=== PATIENT | male | born 1995 | race Caucasian/White ===

== ENCOUNTER 2018-12-09 17:25 | Emergency (ER) | payer BC, OTHER ==
[~2018-12-09] VITALS: Ht 172.7 cm; Wt 67.3 kg
[2018-12-09 18:00] LABS: HEMATOCRIT 45.4 % (42.0-52.0); HEMOGLOBIN 15.7 g/dl (13.5-17.5); MEAN CORPUSCULAR HGB CONC 34.6 g/dl (32.0-36.5); MEAN CORPUSCULAR VOLUME 86.8 fl (80.0-96.0); PLATELET COUNT, AUTOMATED 214 10^3/uL (150-450); RED BLOOD COUNT 5.23 10^6/uL (4.30-6.10); WHITE BLOOD COUNT 7.3 10^3/uL (4.0-10.0)
[2018-12-09 18:44] LABS: ACETAMINOPHEN LEVEL < 2.0 UG/ML (10.0-30.0); ALBUMIN 4.8 GM/DL (3.2-5.2); ALT/SGPT 19 U/L (12-78); BILIRUBIN,DIRECT 0.2 MG/DL (0.0-0.2); BILIRUBIN,TOTAL 0.6 MG/DL (0.2-1.0); BLOOD UREA NITROGEN 10 MG/DL (7-18); CALCIUM LEVEL 9.2 MG/DL (8.5-10.1); CARBON DIOXIDE LEVEL 28 MEQ/L (21-32); CHLORIDE LEVEL 106 MEQ/L (98-107); CREATININE FOR GFR 1.05 MG/DL (0.70-1.30); ETHYL ALCOHOL (ETHANOL) < 0.003 % (0.000-0.010); GLOMERULAR FILTRATION RATE > 60.0 (>60); GLUCOSE, FASTING 78 MG/DL (70-100); POTASSIUM SERUM 4.1 MEQ/L (3.5-5.1); SALICYLATE LEVEL < 1.7 MG/DL (5.0-30.0); SODIUM LEVEL 141 MEQ/L (136-145); THYROID STIMULATING HORMONE 0.613 uIU/ML (0.358-3.740); TOTAL PROTEIN 7.8 GM/DL (6.4-8.2)
[2018-12-09] MEDS ORDERED: ALPRAZolam 0.5 MG TAB PO ONE (19:15)
[2018-12-09 19:51] LABS: AMPHETAMINES LEVEL URINE NEGATIVE (NEGATIVE); BARBITURATES URINE NEGATIVE (NEGATIVE); BENZODIAZEPINES URINE NEGATIVE (NEGATIVE); CANNABINOIDS URINE POSITIVE (NEGATIVE); COCAINE METABOLITE URINE NEGATIVE (NEGATIVE); METHADONE URINE NEGATIVE (NEGATIVE); OPIATES URINE NEGATIVE (NEGATIVE); PHENCYCLIDINE URINE NEGATIVE (NEGATIVE)
--- NOTE | 2018-12-09 21:04 | ECGEPIP ---
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
[2018-12-09 22:37] VITALS: BP 118/69
== END 2018-12-09 22:37 | disposition short-term general hospital (02) ==
LOC: EDSEX 17:25 → M ED 17:25
DX: F43.0 Acute stress reaction (principal); F32.9 Major depressive disorder, single episode, unspecified; I49.9 Cardiac arrhythmia, unspecified
CPT/HCPCS: 36415; 80048; 80076; 80307; 84443; 85027; 93005; 99284; G0480

== ENCOUNTER 2019-02-27 10:12 | Inpatient (IN) | payer BC, OTHER ==
[~2019-02-27] VITALS: Ht 175.3 cm; Wt 64.7 kg
[2019-02-27 10:54] LABS: HEMATOCRIT 44.1 % (42.0-52.0); HEMOGLOBIN 15.4 g/dl (13.5-17.5); MEAN CORPUSCULAR HEMOGLOBIN 30.6 pg (27.0-33.0); MEAN CORPUSCULAR HGB CONC 34.9 g/dl (32.0-36.5); MEAN CORPUSCULAR VOLUME 87.7 fl (80.0-96.0); PLATELET COUNT, AUTOMATED 194 10^3/uL (150-450); RED BLOOD COUNT 5.03 10^6/uL (4.30-6.10); WHITE BLOOD COUNT 8.9 10^3/uL (4.0-10.0)
[2019-02-27 11:22] LABS: AMPHETAMINES LEVEL URINE NEGATIVE (NEGATIVE); BARBITURATES URINE NEGATIVE (NEGATIVE); BENZODIAZEPINES URINE NEGATIVE (NEGATIVE); CANNABINOIDS URINE POSITIVE (NEGATIVE); COCAINE METABOLITE URINE NEGATIVE (NEGATIVE); METHADONE URINE NEGATIVE (NEGATIVE); OPIATES URINE NEGATIVE (NEGATIVE); PHENCYCLIDINE URINE NEGATIVE (NEGATIVE)
[2019-02-27 11:43] LABS: ACETAMINOPHEN LEVEL < 2.0 UG/ML (10.0-30.0); ALBUMIN 4.7 GM/DL (3.2-5.2); ALT/SGPT 22 U/L (12-78); BILIRUBIN,DIRECT 0.2 MG/DL (0.0-0.2); BILIRUBIN,TOTAL 0.6 MG/DL (0.2-1.0); BLOOD UREA NITROGEN 10 MG/DL (7-18); CALCIUM LEVEL 9.1 MG/DL (8.5-10.1); CARBON DIOXIDE LEVEL 27 MEQ/L (21-32); CHLORIDE LEVEL 103 MEQ/L (98-107); CREATININE FOR GFR 1.09 MG/DL (0.70-1.30); ETHYL ALCOHOL (ETHANOL) < 0.003 % (0.000-0.010); GLOMERULAR FILTRATION RATE > 60.0 (>60); GLUCOSE, FASTING 96 MG/DL (70-100); POTASSIUM SERUM 3.6 MEQ/L (3.5-5.1); SALICYLATE LEVEL < 1.7 MG/DL (5.0-30.0); SODIUM LEVEL 138 MEQ/L (136-145); TOTAL PROTEIN 7.5 GM/DL (6.4-8.2)
[2019-02-27] MEDS ORDERED: MOM 30ML SUSPENSION UDC PO PRN (13:15)
[2019-02-27] MEDS ORDERED: MAALOX 30 ML SUSP *UDC PO PRN (13:15)
[2019-02-27] MEDS ORDERED: LORazepam 1 MG TAB PO ONE (13:15)
[2019-02-27 14:00] VITALS: BP 119/71
--- NOTE | 2019-02-27 17:50 | HPEPDOC ---
[facility] Medical History & Physical Date of Admission February 27, 2019 History and Physical CHIEF COMPLAINT: [Hospitalist evaluation] HISTORY OF PRESENT ILLNESS: [23-year-old gentleman was in a few past medical history other than depression and schizophrenia who was admitted to the inpatient mental health unit for thoughts of paranoia. Patient recognized that he had paranoia and therefore came to the hospital for further evaluation and treatment. Patient denies of any complaints at this time. Resting comfortably in the inpatient mental health. Patient wants to get help.] PAST MEDICAL HISTORY: Schizophrenia, depression No medical history PAST SURGICAL HISTORY: None SOCIAL HISTORY: Social he smokes cigarettes, socially drinks alcohol occasionally but not abuse them Smokes marijuana but denies of any IV drug abuse FAMILY HISTORY: Far sees aware both parents are healthy ALLERGIES: Please see below. REVIEW OF SYSTEMS: 10 point review systems negative than those described in HPI HOME MEDICATIONS: Please see below. PHYSICAL EXAMINATION: VITAL SIGNS: Please see below GENERAL APPEARANCE: Resting comfortably HEENT: Normocephalic, PERRLA, Mucous moist, CARDIOVASCULAR: S1,S2, pulse present, regularly, regular LUNGS: Equal air entry b/l, no wheezes or crackle ABDOMEN: Soft, BS present, no tenderness, no guarding EXTREMITIES: B/L no edema, capillary refill present SKIN: Warm, No fever NEUROLOGICAL: Cranial nerves grossly intact PSYCHIATRIC: Normal mood and affect for current situation LABORATORY DATA: See below. Assessment and plan: [23-year-old gentleman was in a few past medical history other than depression and schizophrenia who was admitted to the inpatient mental health unit for thoughts of paranoia. Paranoia -Defer to further recommendation by psychiatric team Smoking cessation -Nicotine patch as needed No overt signs of any alcohol withdrawal -Continue to monitor We'll sign off, please reconsult as needed. Vital Signs Vital Signs Date Time Temp Pulse Resp B/P (MAP) Pulse Ox O2 Delivery O2 Flow Rate FiO2 02/27/19 14:04 98.6 82 17 119/71 (87) 98 Room Air 02/27/19 14:00 98.0 Laboratory Data Labs 24H Laboratory Tests 2 02/27/19 10:44: Nucleated Red Blood Cells % (auto) 0.0, Anion Gap 8, Glomerular Filtration Rate > 60.0, Calcium Level 9.1, Aspartate Amino Transf (AST/SGOT) 16, Alanine Aminotransferase (ALT/SGPT) 22, Alkaline Phosphatase 70, Total Bilirubin 0.6, Direct Bilirubin 0.2, Total Protein 7.5, Albumin 4.7, Albumin/Globulin Ratio 1.68, Thyroid Stimulating Hormone (TSH) 1.400, Salicylates Level < 1.7L, Urine Amphetamines Screen NEGATIVE, Urine Benzodiazepines Screen NEGATIVE, Urine Opiates Screen NEGATIVE, Urine Methadone Screen NEGATIVE, Acetaminophen Level < 2.0L, Urine Barbiturates Screen NEGATIVE, Urine Phencyclidine Screen NEGATIVE, Urine Cocaine Metabolite Screen NEGATIVE, Urine Cannabinoids Screen POSITIVEH, Ethyl Alcohol Level < 0.003 CBC/BMP Laboratory Tests 02/27/19 10:44 Red Blood Count 5.03, Mean Corpuscular Volume 87.7, Mean Corpuscular Hemoglobin 30.6, Mean Corpuscular Hemoglobin Concent 34.9, Red Cell Distribution Width 12.1 Home Medications No Active Prescriptions or Reported Meds Allergies Coded Allergies: No Known Allergies (Unverified , 12/09/18) RODRI OSWALD MD February 27, 2019 17:50
[2019-02-28 06:46] VITALS: BP 136/61
--- NOTE | 2019-02-28 13:20 | MHHPEPDOC ---
General Date Of Admission: February 27, 2019 Legal Status: 9.39 Chief Complaint "I think my roommates are gangsters and I'm scared for my safety." History of Present Illness HISTORY OF THE PRESENT ILLNESS: Patient is a 23 -year-old , male, with no known psych history who was brought by [employer] under 9.41 after pt seen at [facility] endorsing SI with thoughts to hang self and paranoia stating he thought his roommates where gangsters and he was scared for his safety. Pt seen in ED endorsing same paranoia of roommates. Per ED he appears unable to distinguish fear from reality, confused at times, restless, pacing, anxious, fearful believing PD coming for him. Pt per ED, disorganized at times and in the middle of interview hesitated and stated "I need to go to sleep" mid inter view which was odd according to the ED. Pt is a very poor historian and some history gathered from ED records are pt very easily confused and internally preoccupied with thought blocking. Psychiatric Review of Systems Depression (2 or more weeks): depressed mood, difficulty concentrating, suicidal thoughts Hailey (4 or more days of): denies Psychosis: delusions, paranoia, disorganization PTSD: denies Anxiety: situational anxiety, stressor related anxiety Anxiety/ 6 months or more of: restlessness, keyed up, difficulty concentrating Past Psychiatric History Previous Psychiatric Diagnosis:denies Previous Psychiatric Admissions: denies Suicide Attempts: denies Psychiatric Follow-up: [facility] Psychiatric medications: none Past Medical History Medical Problems denies Head Injury: No Seizures: No Hospitalizations: No Surgeries: No Family Medical/Psychiatric HX Medical Problems noncontributory Addiction History nicotine Social History Childhood: unable to assess fully as pt is a very poor historian. 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 Social Support: family Legal: no kids Marital: single, never Mental Status Examination General Appearance: unkempt, disheveled, appears stated age Build: average Demeanor: preoccupied, very figety Eye Contact: poor Activity: anxious Behavior: cooperative, restless Speech: clear, non-spontaneous (would get confused and stop in middle of sentences) Mood: depressed, anxious Mood scared Affect: constricted, appropriate, congruent, anxious, disorganized Thought Process: tangential, blocked, loose, associative, depressed, derailment Thought Content (Delusions): denies SI, HI, AVH, paranoia, delusions Thought Content (Other): preoccupied (a lot), phobic, ideas of reference, internal-stimuli, appears paranoid, unable to elaborate Thought Content (Aggressive): none reported Perception (Hallucinations): auditory (denies but appears to be responding to internal stimuli as he is very preoccupied in thought) Cognition (Impairment of): memory, attention/concentration, ability to abstract Cognition(Intelligence Est.): average Oriented: Awake, Alert, Oriented times three Insight: poor Judgment: Poor Psychosis: Associations, Abstract Thinking, Psychotic Perceptions Diagnoses psychosis unspecified R/O major depression severe with psychotic features R/O paranoid schizophrenia A-FIB/CHADSVASC A-FIB History Current/History of A-Fib/PAF?: No Current Oral Anticoagulant The: No Treatment Treatment ordered: NONE Reason Anticoagulant not given: Not indicated/[id number] Assessment Pt seen and states "I'm kind of having life events... I'm about to have a catharsis thing... I don't know... my roommate are 18 and they started talking about gang stuff and wanted to bring me into meet this whitney higher in the chain selling weed." Got confused multiple times while trying to explain what his thoughts and feelings are and why and wasn't able to finish. Admitted he fear for his safety due to believing his roommates are gangsters. States he procrastinated on moving dorm rooms and realizes he needs to now b/c doesn't want to be around that and feels people are associating him with gangsters. 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 Pt easily confused, distracted during interview starting and stopping loosing track of what he was saying in the middle of it, appeared to be having thought blocking due to internal preoccupation and paranoid delusions. Denied SI/HI here, fears for his safety "out there." Discuss starting abilify for paranoid thoughts and agreeable, risks/benefits discussed. Discussed availability of either abilify mantenna or grover im if he tolerates abilify well and it's beneficial which he agrees to. Initial Treatment Plan 1. Patient was admitted on a 9.39 status. 2. Complete history was obtained. 3. With patients permission, family will be contacted and database will be expanded. 4. Patients medication regimen will be reviewed and changed accordingly. 5. Patient will be provided with protected environment. 6. Patient will be treated with individual, group, and milieu therapies. 7. Patient will receive supportive psych-education. 8. Discharge planning will commence immediately. 9. Outpatient follow-up treatment will be strongly recommended. 10. The initial treatment plan will focus initially on: * Depression. * Risk for suicide. * Substance abuse. 11. abilify 5mg bid. vistaril 25mg q6hr prn anxiety ESTIMATED LENGTH OF STAY: 5-7 DAYS. TIME SPENT COUNSELING AND COORDINATING INITIAL CARE: 60 minutes. Vital Signs Vital Signs Date Time Temp Pulse Resp B/P (MAP) Pulse Ox O2 Delivery O2 Flow Rate FiO2 02/28/19 06:46 97.3 75 14 136/61 (86) 02/27/19 14:04 98 Room Air 02/27/19 14:00 98.0 Medications No Active Prescriptions or Reported Meds Allergies Coded Allergies: No Known Allergies (Unverified , 12/09/18) ANGELA RODRIGUEZ DO February 28, 2019 13:20
[2019-02-28] MEDS ORDERED: LORazepam 2 MG TAB PO PRN (13:30)
[2019-02-28] MEDS ORDERED: hydrOXYzine 25 MG TAB PO PRN (13:30)
[2019-02-28 18:00] VITALS: BP 120/60
[2019-02-28] MEDS: traZODone 50 MG TAB PO PRN (21:25)
[2019-03-01 06:36] VITALS: BP 98/50
--- NOTE | 2019-03-01 09:45 | MHIPNPDOC ---
[facility] Progress Note Progress Note DATE OF SERVICE: 03/01/19 HISTORY:Patient is a 23 -year-old , male, with no known psych history who was brought by [employer] under 9.41 after pt seen at [facility] endorsing SI with thoughts to hang self and paranoia stating he thought his roommates where gangsters and he was scared for his safety. Pt seen in ED endorsing same paranoia of roommates. Per ED he appears unable to distinguish fear from reality, confused at times, restless, pacing, anxious, fearful believing PD coming for him. Pt per ED, disorganized at times and in the middle of interview hesitated and stated "I need to go to sleep" mid interview which was odd according to the ED. Pt is a very poor historian and some history gathered from ED records are pt very easily confused and internally preoccupied with thought blocking. VITAL SIGNS: See below. NEW TEST RESULTS: See below. CURRENT MEDICATIONS: See below. MENTAL STATUS EXAMINATION: General Appearance: unkempt, disheveled, appears stated age Build: average Demeanor: preoccupied, less figety Eye Contact: poor Activity: anxious Behavior: cooperative, less restless Speech: clear, non-spontaneous (gets confused and stop in middle of sentences) Mood: depressed, anxious Mood "better" Affect: constricted, appropriate, congruent, less anxious, disorganized Thought Process: tangential, blocked, loose, associative, depressed, derailment Thought Content (Delusions): denies SI, HI, AVH, endorses paranoia and delusions Thought Content (Other): preoccupied (mildly less), no longer phobic, ideas of reference, internal-stimuli, appears paranoid, unable to elaborate Thought Content (Aggressive): none reported Perception (Hallucinations): auditory (denies but appears to be responding to internal stimuli as he is very preoccupied in thought) Cognition (Impairment of): memory, attention/concentration, ability to abstract Cognition(Intelligence Est.): average Oriented: Awake, Alert, Oriented times three Insight: poor Judgment: Poor Psychosis: Associations, Abstract Thinking, Psychotic Perceptions DIAGNOSES: psychosis unspecified R/O major depression severe with psychotic features R/O paranoid schizophrenia ASSESSMENT:Pt seen and states that he feels better today as he's finding abilify beneficial for his psychotic symptoms and tolerating it well. Endorses improved paranoia and confusion mildly. Depression is not as bad he states. Still preoccupied with thought blocking but less severe. States he slept well last night. Feels he is tolerating his medications and they're beneficial. Encouraged to attend groups and not isolate to aid psych symptoms. He denies SI/HI. Continues to be psychotic overall. Pt feels safe here. MANAGEMENT PLAN: continue plan. Medications: abilify 5mg bid vistaril 25mg q6hr prn anxiety TIME SPENT: 30 minutes. Vital Signs Vital Signs Date Time Temp Pulse Resp B/P (MAP) Pulse Ox O2 Delivery O2 Flow Rate FiO2 03/01/19 06:36 98.0 64 12 98/50 (66) 02/27/19 14:04 98 Room Air 02/27/19 14:00 98.0 Current Medications Current Medications Acetaminophen (Tylenol Tab) 650 mg Q6HP PRN PO HEADACHE or DISCOMFORT; Start 02/27/19 at 13:15 Al Hydrox/Mg Hydrox/Simethicone (Mylanta) 30 ml Q4HP PRN PO HEARTBURN/INDIGESTION; Start 02/27/19 at 13:15 Aripiprazole (AbiLIFY) 5 mg BID PO Last administered on 03/01/19at 09:15; Start 02/28/19 at 21:00 Home Med (Med Rec Complete!) ASDIRECTED XX ; Start 02/27/19 at 13:45; Stop 02/27/19 at 13:45; Status DC Hydroxyzine HCl (Atarax) 25 mg Q6HP PRN PO ANXIETY; Start 02/28/19 at 13:30 Lorazepam (Ativan) 2 mg Q6HP PRN PO ANXIETY/AGITATION Last administered on 03/01/19at 01:02; Start 02/28/19 at 13:30 Magnesium Hydroxide (Milk Of Magnesia) 30 ml DAILYPRN PRN PO CONSTIPATION; Start 02/27/19 at 13:15 Trazodone HCl (Desyrel) 50 mg QHSP PRN PO INSOMNIA Last administered on at 21:25; Start 02/27/19 at 13:15 Allergies Coded Allergies: No Known Allergies (Unverified , 12/09/18) A-FIB/CHADSVASC A-FIB History Current/History of A-Fib/PAF?: No Current Oral Anticoagulant The: No Treatment Treatment ordered: NONE Reason Anticoagulant not given: Not indicated/[id number] ANGELA RODRIGUEZ DO March 01, 2019 9:45 am
[2019-03-01 18:09] VITALS: BP 111/68
[2019-03-01] MEDS: traZODone 50 MG TAB PO PRN (22:26)
[2019-03-02 06:51] VITALS: BP 104/53
--- NOTE | 2019-03-02 09:00 | MHIPNPDOC ---
[facility] Progress Note Progress Note DATE OF SERVICE: 03/02/19 HISTORY: Patient is a 23 -year-old , male, with no known psych history who was brought by [facility] under 9.41 after pt seen at [facility] endorsing SI with thoughts to hang self and paranoia stating he thought his roommates where gangsters and he was scared for his safety. Pt seen in ED endorsing same paranoia of roommates. Per ED he appears unable to distinguish fear from reality, confused at times, restless, pacing, anxious, fearful believing PD coming for him. Pt per ED, disorganized at times and in the middle of interview hesitated and stated "I need to go to sleep" mid interview which was odd according to the ED. Pt is a very poor historian and some history gathered from ED records are pt very easily confused and internally preoccupied with thought blocking. VITAL SIGNS: See below. NEW TEST RESULTS: See below. CURRENT MEDICATIONS: See below. MENTAL STATUS EXAMINATION: General Appearance: unkempt, disheveled, appears stated age Build: average Demeanor: preoccupied, less fidgety Eye Contact: poor Activity: anxious Behavior: cooperative, less restless Speech: clear, non-spontaneous at times Mood: depressed, anxious Mood "ok" Affect: constricted, appropriate, congruent, less anxious, disorganized Thought Process: tangential, blocked, loose, associative, depressed, derailment Thought Content (Delusions): denies SI, HI, AVH, less paranoia and delusions Thought Content (Other): preoccupied (mildly less), no longer phobic, ideas of reference, internal-stimuli, appears less paranoid, unable to elaborate Thought Content (Aggressive): none reported Perception (Hallucinations): auditory (denies but appears to be responding to internal stimuli as he is very preoccupied in thought) Cognition (Impairment of): memory, attention/concentration, ability to abstract Cognition(Intelligence Est.): average Oriented: Awake, Alert, Oriented times three Insight: poor Judgment: Poor Psychosis: Associations, Abstract Thinking, Psychotic Perceptions DIAGNOSES: psychosis unspecified R/O major depression severe with psychotic features R/O paranoid schizophrenia ASSESSMENT:Pt seen and states that he feels "ok" today as he's finding abilify beneficial for his psychotic symptoms and tolerating it well. Continues to endorses improved paranoia and confusion mildly. Depression is less than it was and he is more motivated to do things during the day. Able to ask direct questions. Still preoccupied with thought blocking but less frequent. States he slept well last night. Feels he is tolerating his medications and they're beneficial. Is attending some groups and finding helpful. He denies SI/HI. Continues to be psychotic overall. Seen pacing milieu talking to self and responding to internal stimuli. Pt feels safe here. MANAGEMENT PLAN: increase abilify Medications: abilify 10mg bid vistaril 25mg q6hr prn anxiety TIME SPENT: 30 minutes. Vital Signs Vital Signs Date Time Temp Pulse Resp B/P (MAP) Pulse Ox O2 Delivery O2 Flow Rate FiO2 03/02/19 06:51 97.6 62 14 104/53 (70) 02/27/19 14:04 98 Room Air 02/27/19 14:00 98.0 Current Medications Current Medications Acetaminophen (Tylenol Tab) 650 mg Q6HP PRN PO HEADACHE or DISCOMFORT; Start 02/27/19 at 13:15 Al Hydrox/Mg Hydrox/Simethicone (Mylanta) 30 ml Q4HP PRN PO HEARTBURN/INDIGESTION; Start 02/27/19 at 13:15 Aripiprazole (AbiLIFY) 5 mg BID PO Last administered on 03/02/19at 08:04; Start 02/28/19 at 21:00 Home Med (Med Rec Complete!) ASDIRECTED XX ; Start 02/27/19 at 13:45; Stop 02/27/19 at 13:45; Status DC Hydroxyzine HCl (Atarax) 25 mg Q6HP PRN PO ANXIETY; Start 02/28/19 at 13:30 Lorazepam (Ativan) 2 mg Q6HP PRN PO ANXIETY/AGITATION Last administered on 03/01/19at 01:02; Start 02/28/19 at 13:30 Magnesium Hydroxide (Milk Of Magnesia) 30 ml DAILYPRN PRN PO CONSTIPATION; Start 02/27/19 at 13:15 Trazodone HCl (Desyrel) 50 mg QHSP PRN PO INSOMNIA Last administered on 03/01/19at 22:26; Start 02/27/19 at 13:15 Allergies Coded Allergies: No Known Allergies (Unverified , 12/09/18) A-FIB/CHADSVASC A-FIB History Current/History of A-Fib/PAF?: No Current Oral Anticoagulant The: No Treatment Treatment ordered: NONE Reason Anticoagulant not given: Not indicated/[id number] ANGELA RODRIGUEZ DO March 02, 2019 09:00
[2019-03-02 17:25] VITALS: BP 106/55
[2019-03-02] MEDS: ARIPiprazole 10 MG TAB PO SCH (20:24)
[2019-03-02] MEDS: traZODone 50 MG TAB PO PRN (20:24)
[2019-03-03 06:50] VITALS: BP 98/52
[2019-03-03] MEDS: ARIPiprazole 10 MG TAB PO SCH (08:44)
--- NOTE | 2019-03-03 10:36 | MHIPNPDOC ---
[facility] Progress Note Progress Note DATE OF SERVICE: 03/03/19 HISTORY: Patient is a 23 -year-old , male, with no known psych history who was brought by [employer] under 9.41 after pt seen at [facility] endorsing SI with thoughts to hang self and paranoia stating he thought his roommates where gangsters and he was scared for his safety. Pt seen in ED endorsing same paranoia of roommates. Per ED he appears unable to distinguish fear from reality, confused at times, restless, pacing, anxious, fearful believing PD coming for him. Pt per ED, disorganized at times and in the middle of interview hesitated and stated "I need to go to sleep" mid interview which was odd according to the ED. Pt is a very poor historian and some history gathered from ED records are pt very easily confused and internally preoccupied with thought blocking. VITAL SIGNS: See below. NEW TEST RESULTS: See below. CURRENT MEDICATIONS: See below. MENTAL STATUS EXAMINATION: General Appearance: unkempt, disheveled, appears stated age Build: average Demeanor: less preoccupied, less fidgety Eye Contact: fair Activity: less anxious Behavior: cooperative, less restless Speech: clear, non-spontaneous at times Mood: depressed, less anxious Mood "alright" Affect: constricted, appropriate, congruent, less anxious Thought Process: more linear and logical, concrete, depressed, some blocking of thought Thought Content (Other): preoccupied (mildly less), no longer phobic Thought Content (Aggressive): none reported Perception (Hallucinations): mildly less auditory (denies but appears to be responding to internal stimuli as he is very preoccupied in thought) Cognition (Impairment of): slowly improving attention/concentration, ability to abstract Cognition(Intelligence Est.): average Oriented: Awake, Alert, Oriented times three Insight: poor Judgment: Poor Psychosis: some improvement Associations, Abstract Thinking, Psychotic Perceptions DIAGNOSES: psychosis unspecified R/O major depression severe with psychotic features R/O paranoid schizophrenia ASSESSMENT:Pt seen and states that he feels "alright" today as he's finding the increase in abilify beneficial for his psychotic symptoms and tolerating it well. Continues to endorses improved paranoia and confusion stating it's much easier for him now to put his thoughts into words as they are more clear. Depression is less than it was and he is more motivated to do things during the day, socialize with peers. Able to ask direct questions. Still preoccupied with thought blocking but less frequent. States he slept well last night. Feels he is tolerating his medications and they're beneficial. Gave him the option of either abilify mantenna im qmonthly or abilify aristada im [id number] and chose aristada as it is an injection every 2 months rather than once a month. Risks/benefits discussed. Will d/c oral after aristada initio and aristada given im. Is attending some groups and finding helpful. He denies SI/HI. Psychosis is showing some improvement. Seen pacing milieu talking to self and responding to internal stimuli at times. Pt feels safe here. MANAGEMENT PLAN: aristada intio 675mg im today followed by abilify aristada 1,064mg im today. D/c oral after aristada given. Medications: vistaril 25mg q6hr prn anxiety aristada initio 675mg im x1 then abilify aristada 1,093mg im today TIME SPENT: 30 minutes. Vital Signs Vital Signs Date Time Temp Pulse Resp B/P (MAP) Pulse Ox O2 Delivery O2 Flow Rate FiO2 03/03/19 06:50 97.3 67 14 98/52 (67) 02/27/19 14:04 98 Room Air 02/27/19 14:00 98.0 Current Medications Current Medications Acetaminophen (Tylenol Tab) 650 mg Q6HP PRN PO HEADACHE or DISCOMFORT; Start 02/27/19 at 13:15 Al Hydrox/Mg Hydrox/Simethicone (Mylanta) 30 ml Q4HP PRN PO HEARTBURN/INDIGESTION; Start 02/27/19 at 13:15 Aripiprazole (AbiLIFY) 5 mg BID PO Last administered on 03/02/19at 08:04; Start 02/28/19 at 21:00; Stop 03/02/19 at 09:46; Status DC Aripiprazole (AbiLIFY) 10 mg BID PO Last administered on 03/03/19at 08:44; Start 03/02/19 at 21:00 Home Med (Med Rec Complete!) ASDIRECTED XX ; Start 02/27/19 at 13:45; Stop 02/27/19 at 13:45; Status DC Hydroxyzine HCl (Atarax) 25 mg Q6HP PRN PO ANXIETY; Start 02/28/19 at 13:30 Lorazepam (Ativan) 2 mg Q6HP PRN PO ANXIETY/AGITATION Last administered on 03/01/19at 01:02; Start 02/28/19 at 13:30 Magnesium Hydroxide (Milk Of Magnesia) 30 ml DAILYPRN PRN PO CONSTIPATION; Start 02/27/19 at 13:15 Trazodone HCl (Desyrel) 50 mg QHSP PRN PO INSOMNIA Last administered on 03/02/19at 20:24; Start 02/27/19 at 13:15 Allergies Coded Allergies: No Known Allergies (Unverified , 12/09/18) A-FIB/CHADSVASC A-FIB History Current/History of A-Fib/PAF?: No Current Oral Anticoagulant The: No Treatment Treatment ordered: NONE Reason Anticoagulant not given: Not indicated/[id number] ANGELA RODRIGUEZ DO March 03, 2019 10:35 am
[2019-03-03] MEDS ORDERED: ARIPIPRAZOLE LAUROXIL IM ONE (12:00)
[2019-03-03] MEDS ORDERED: ARIPIPRAZOLE LAUROXIL 1,064 MG/3.9ML INJ(ARISTADA)(J1942 PER 1MG) IM ONE (12:00)
[2019-03-03] MEDS: ACETAMINOPHEN TAB 650MG DOSE (2X325MG) PO PRN (17:54)
[2019-03-03 18:00] VITALS: BP 136/71
[2019-03-03] MEDS: traZODone 50 MG TAB PO PRN (22:53)
[2019-03-04 06:38] VITALS: BP 139/62
--- NOTE | 2019-03-04 09:54 | MHIPNPDOC ---
[facility] Progress Note Progress Note DATE OF SERVICE: 03/04/19 HISTORY: Patient is a 23 -year-old , male, with no known psych history who was brought by [employer] under 9.41 after pt seen at [facility] endorsing SI with thoughts to hang self and paranoia stating he thought his roommates where gangsters and he was scared for his safety. Pt seen in ED endorsing same paranoia of roommates. Per ED he appears unable to distinguish fear from reality, confused at times, restless, pacing, anxious, fearful believing PD coming for him. Pt per ED, disorganized at times and in the middle of interview hesitated and stated "I need to go to sleep" mid interview which was odd according to the ED. Pt is a very poor historian and some history gathered from ED records are pt very easily confused and internally preoccupied with thought blocking. VITAL SIGNS: See below. NEW TEST RESULTS: See below. CURRENT MEDICATIONS: See below. MENTAL STATUS EXAMINATION: General Appearance: unkempt, disheveled, appears stated age Build: average Demeanor: less preoccupied, less fidgety Eye Contact: fair Activity: cooperative, anxious Behavior: cooperative, less restless Speech: clear, non-spontaneous at times Mood: less depressed, less anxious Mood "anxious" Affect: constricted, appropriate, congruent, anxious Thought Process: more linear and logical, concrete, depressed, some blocking of thought Thought Content (Other): preoccupied (mildly less), no longer phobic Thought Content (Aggressive): none reported Perception (Hallucinations): improved auditory (less responding to internal stimuli and preoccupied thought) Cognition (Impairment of): improving attention/concentration, ability to abstract Cognition(Intelligence Est.): average Oriented: Awake, Alert, Oriented times three Insight: fair Judgment: fair Psychosis: improving Associations, Abstract Thinking, Psychotic Perceptions DIAGNOSES: psychosis unspecified R/O major depression severe with psychotic features R/O paranoid schizophrenia ASSESSMENT:Pt seen and states that he feels a bit anxious about his medication as he concerned about having TD after his mother looked up the medication and told her concerns to him. Discuss with pt what TD is, how it develops, and its association with abilify. Reassured that takes multiple years to decades of developing TD usually associated more with senior living high dose treatment with first generation antipsychotics and is unlikely to occurring if his medication is managed and monitored appropriately, monitoring for side effects such as eps. States he feels much better after discussion. States he tolerated aristada im medications yesterday and feels they're beneficial, denies any side effects. Does endorse anxiety mild paranoia relating to service men on unit as his father was in the and committed suicide when he was 8. Discussed and reassured him that they're are normal people like him just here for help as well so they don't harm themselves. [place] better after discussing. Continues to endorses improved confusion stating it's much easier for him now to put his thoughts into words as they are more clear. Depression is less than it was and he is more motivated to do things during the day, socialize with peers. Able to ask direct questions. Still preoccupied with thought blocking but less frequent. States he slept well last night. Feels he is tolerating his med ications and they're beneficial. Is attending some groups and finding helpful. He denies SI/HI. Psychosis is showing improvement. No longer pacing unit, talking to self. Pt feels safe here. MANAGEMENT PLAN: Medications: vistaril 25mg q6hr prn anxiety aristada initio 675mg im x1 then abilify aristada 1,093mg im 03/03/19 TIME SPENT: 30 minutes. Vital Signs Vital Signs Date Time Temp Pulse Resp B/P (MAP) Pulse Ox O2 Delivery O2 Flow Rate FiO2 03/04/19 06:38 98.0 73 16 139/62 (87) 02/27/19 14:04 98 Room Air 02/27/19 14:00 98.0 Current Medications Current Medications Acetaminophen (Tylenol Tab) 650 mg Q6HP PRN PO HEADACHE or DISCOMFORT Last administered on 03/03/19at 17:54; Start 02/27/19 at 13:15 Al Hydrox/Mg Hydrox/Simethicone (Mylanta) 30 ml Q4HP PRN PO HEA RTBURN/INDIGESTION; Start 02/27/19 at 13:15 Aripiprazole (AbiLIFY) 5 mg BID PO Last administered on 03/02/19at 08:04; Start 02/28/19 at 21:00; Stop 03/02/19 at 09:46; Status DC Aripiprazole (AbiLIFY) 10 mg BID PO Last administered on 03/03/19at 08:44; Sta rt 03/02/19 at 21:00; Stop 03/03/19 at 10:37; Status DC Home Med (Med Rec Complete!) ASDIRECTED XX ; Start 02/27/19 at 13:45; Stop 02/27/19 at 13:45; Status DC Hydroxyzine HCl (Atarax) 25 mg Q6HP PRN PO ANXIETY; Start 02/28/19 at 13:30 Lorazepam (Ativan) 2 mg Q6HP PRN PO ANXIETY/AGITATION Last administered on 03/01/19at 01:02; Start 02/28/19 at 13:30 Magnesium Hydroxide (Milk Of Magnesia) 30 ml DAILYPRN PRN PO CONSTIPATION; Start 02/27/19 at 13:15 Trazodone HCl (Desyrel) 50 mg QHSP PRN PO INSOMNIA Last administered on 03/03/19at 22:53; Start 02/27/19 at 13:15 Allergies Coded Allergies: No Known Allergies (Unverified , 12/09/18) A-FIB/CHADSVASC A-FIB History Current/History of A-Fib/PAF?: No Current Oral Anticoagulant The: No Treatment Treatment ordered: NONE Reason Anticoagulant not given: Not indicated/[id number] ANGELA RODRIGUEZ DO March 04, 2019 9:54 am
[2019-03-04 18:00] VITALS: BP 136/77
[2019-03-04] MEDS: traZODone 50 MG TAB PO PRN (19:54)
[2019-03-04] MEDS: ACETAMINOPHEN TAB 650MG DOSE (2X325MG) PO PRN (19:56)
[2019-03-05 06:59] VITALS: BP 141/74
[2019-03-05] MEDS ORDERED: ARIS1064 IM (09:02)
[2019-03-05] MEDS ORDERED: TRAZO50TA PO (09:02)
[2019-03-05] MEDS ORDERED: HYDR-3363 PO (09:02)
--- NOTE | 2019-03-05 09:09 | MHDSPDOC ---
[facility] Discharge Summary Discharge Summary DATE OF ADMISSION: February 27, 2019 at 1:13 pm DATE OF DISCHARGE: March 05, 2019 DISCHARGE DIAGNOSES: psychosis unspecified R/O major depression severe with psychotic features R/O paranoid schizophrenia REASON FOR ADMISSION: Patient is a 23 -year-old , male, with no known psych history who was brought by [employer] under 9.41 after pt seen at [facility] endorsing SI with thoughts to hang self and paranoia stating he thought his roommates where gangsters and he was scared for his safety. Pt seen in ED endorsing same paranoia of roommates. Per ED he appears unable to distinguish fear from reality, confused at times, restless, pacing, anxious, fearful believing PD coming for him. Pt per ED, disorganized at times and in the middle of interview hesitated and stated "I need to go to sleep" mid interview which was odd according to the ED. Pt is a very poor historian and some history gathered from ED records are pt very easily confused and internally preoccupied with thought blocking. CONSULTANTS INVOLVED: none TREATMENT AND PROGRESS ON THE UNIT : Pt was admitted to [facility], seen for psychiatric assessment and started on abilify increased to 10mg bid for psychosis. He received aristada initio im then aristada im after choose it over abilify mantenna b/c it is given [id number] for psychosis and compliance, both of which he tolerated well and found beneficial. Risk, benefits, and the likely [place] of developing TD were discussed with him and he stated he was agreeable to the im medications. His oral abilify was d/c after aristada given. He was provided vistaril 25mg q6hr prn anxiety and trazodone 50mg qhs prn insomnia. Pt found his medications beneficial and tolerated them well. He attended groups daily during his stay. His symptoms improved with treatment. On day of discharge he denied depression, anxiety, insomnia, SI/HI, hallucinations, delusions. He was discharged home after family meeting with his mother with follow-up at [facility]. He felt safe for discharge. DISCHARGE ASSESSMENT:Pt seen and states that he feels "good" and back to himself, looking forward to going home with his mother today. States he's tolerating his aristada well and feels it's beneficial. His thoughts are linear and logical and he denies paranoia and delusions. He is attending groups and socializing well on the unit which he finds beneficial. Denies depression and anxiety. Able to ask direct questions. Still preoccupied with thought blocking but less frequent. States he slept well last night. He denies depression, anxiety, insomnia, SI/HI, hallucinations, delusions. Pt feels safe to be discharged home with his mother. MENTAL STATUS EXAMINATION ON DISCHARGE: General Appearance: unkempt, disheveled, appears stated age Build: average Demeanor: cooperative Eye Contact: good Activity: cooperative, average Behavior: cooperative Speech: clear, non-spontaneous at times Mood: euthymic, full Mood "good" Affect: euthymic, full, appropriate, congruent Thought Process: linear and logical Thought Content (Other): denies SI/HI, AVH Thought Content (Aggressive): none reported Perception (Hallucinations): none reported Cognition (Impairment of): none reported Cognition(Intelligence Est.): average Oriented: Awake, Alert, Oriented times three Insight: good Judgment: good Psychosis: none reported MEDICATIONS ON DISCHARGE: vistaril 25mg q6hr prn anxiety abilify aristada 1,093mg im [id number] trazodone 50mg qhs prn insomnia. PLAN/FOLLOWUP ARRANGEMENTS: D/c home with mother with follow-up at [facility]. The amount of time spent in the coordination of care for this patient was approx imately 30 minutes. Vital Signs/I&Os Vital Signs Date Time Temp Pulse Resp B/P (MAP) Pulse Ox O2 Delivery O2 Flow Rate FiO2 03/05/19 06:59 97.8 82 18 141/74 (96) 02/27/19 14:04 98 Room Air 02/27/19 14:00 98.0 Medications No Active Prescriptions or Reported Meds Allergies Coded Allergies: No Known Allergies (Unverified , 12/09/18) ANGELA RODRIGUEZ DO March 05, 2019 9:09 am
== END 2019-03-05 11:00 | disposition home or self-care (01) | DRG 885 ==
LOC: M ED 10:12 → M ED INP 13:13 → M PSY 15:32
PROVIDERS: ADMIT Psychiatry & Neurology Psychiatry; ATTEND Psychiatry & Neurology Psychiatry
DX: F32.3 Major depressive disorder, single episode, severe with psychotic features (principal); R45.851 Suicidal ideations; F20.0 Paranoid schizophrenia; F29 Unspecified psychosis not due to a substance or known physiological condition